=== PATIENT | male | born 1985 | race Caucasian/White ===

== ENCOUNTER 2018-12-01 14:29 | Emergency (ER) | payer BC ==
[2018-12-01 15:10] VITALS: BP 141/67
--- NOTE | 2018-12-01 15:25 | UC ---
Skin Complaint HPI - HPI Summary HPI Summary: lacerated left hand with a sharp utility knife when he was cutting zip ties off of a canopy. Had insertion of suture on 11/28/18. Since about 10 hours post, has had chills and aches, subjective fever. Pain in the left forearm possibly increasing, no drainage from laceration. Did not check on the date of his last tetanus, and assumes it was about 4 years ago, and has not confirmed the date of this. Feeling anxious about risk of tetanus. Has nausea but no abdominal pain, vomiting and diarrhea. Taking ibuprofen 400mg every 4 hours, mild alcohol intake. Tavelling back to [place] this pm. 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 Onset/Duration: Sudden Onset Skin Exposure Onset/Duration: Days Ago - 4 Timing: Constant Onset Severity: Moderate Current Severity: Moderate Pain Intensity: 7 Location: Discrete - left thenar eminence. Aggravating Factor(s): Touch, Other - movement of the thumb and wrist. Alleviating Factor(s): OTC Meds Associated Signs & Symptoms: Positive: Nausea, Lightheadedness Related History: Trauma - Allergy/Home Medications Allergies/Adverse Reactions: Allergies Allergy/AdvReac Type Severity Reaction Status Date / Time No Known Allergies Allergy Verified 12/01/18 15:04 Home Medications: Home Medications Ibuprofen TAB* [Advil TAB*] 400 mg PO Q6H PRN 12/01/18 [History Confirmed ] PMH/Surg Hx/FS Hx/Imm Hx Previously Healthy: Yes - Surgical History Surgical History: Yes Surgery Procedure, Year, and Place: R shoulder - Family History Known Family History: Positive: Non-Contributory - Social History Occupation: Employed Full-time - does grounds work, 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 Lives: With Family Alcohol Use: Occasionally Substance Use Type: None Smoking Status (MU): Never Smoked Tobacco Review of Systems All Other Systems Reviewed And Are Negative: Yes Constitutional: Positive: Chills, Fatigue Gastrointestinal: Positive: Nausea Musculoskeletal: Positive: Decreased ROM, Edema Neurological: Positive: Negative Psychological: Positive: Negative Is Patient Immunocompromised?: No Physical Exam Triage Information Reviewed: Yes Appearance: Well-Appearing, Pain Distress - mild Vital Signs: Initial Vital Signs Temp 98.6 F 12/01/18 15:05 Pulse 74 12/01/18 15:05 Resp 15 12/01/18 15:05 BP 141/67 12/01/18 15:05 Pulse Ox 97 12/01/18 15:05 Eyes: Positive: Conjunctiva Clear ENT: Positive: Pharynx normal. Negative: Trismus, Muffled voice Neck: Positive: Supple, Nontender, No Lymphadenopathy Respiratory: Positive: Lungs clear, Normal breath sounds Cardiovascular: Positive: RRR, No Murmur Abdomen Description: Positive: Nontender, No Organomegaly, Soft Neurological: Positive: Alert, Muscle Tone Normal Skin Exam: Other - linear laceration palmar surface of the thenar eminence. suture line with mild erythema. No lymphangitic spread, TTP in the forearm diffusely. Pain with passive movement of the thumb, but is able to abduct the thumb and move it in opposition to the fifth digit. Wrist without swelling. Course/Dx - Course Course Of Treatment: cephalexin for possible early cellulitis. Tetanus booster given due to uncertainty of date of last vaccine. - Differential Diagnoses - Skin Complaint Differential Diagnoses: Cellulitis, Other - compartement syndrome. - Diagnoses Provider Diagnosis: Cellulitis of left hand Discharge - Sign-Out/Discharge Documenting (check all that apply): Patient Departure All imaging exams completed and their final reports reviewed: No Studies - Discharge Plan Condition: Stable Disposition: HOME Prescriptions: cephALEXin [Keflex] 500 mg PO QID #20 capsule Patient Education Materials: Cellulitis (ED), Diphtheria/Pertussis/Tetanus Vaccine (By injection) Forms: *Work Release Referrals: Non Staff,Doctor [Primary Care Provider] - Additional Instructions: Begin cephalexin for treatment of early infection in your wound. Continue ibuprofen for control of pain. Keep your left hand elevated to promote drainage. You have had a [id number] booster today. Follow up as arranged with your primary doctor for removal of sutures. - Billing Disposition and Condition Condition: STABLE Disposition: Home
[2018-12-01] MEDS ORDERED: Tetan/Diph/Pertus SYR(Tdap)* 0.5 ML SYR(BOOSTRIX) use SYR IM ONE (15:28)
== END 2018-12-01 15:50 | disposition home or self-care (01) ==
LOC: UCCORT 14:29
DX: L03.114 Cellulitis of left upper limb (principal); S61.412D Laceration without foreign body of left hand, subsequent encounter; W26.0XXD Contact with knife, subsequent encounter; Z23 Encounter for immunization
CPT/HCPCS: 90471; 90715; 99202; G0463